=== PATIENT | female | born 2000 | race Caucasian/White ===

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

== ENCOUNTER 2022-01-27 16:13 | Observation (INO) ==
[2022-01-27 17:35] LABS: ABS Basophils 0.1 10^3/ul (0-0.2); ABS Eosinophils 0.2 10^3/ul (0-0.6); ABS Lymphocytes 2.1 10^3/ul (1.0-4.8); ABS Monocytes 1.2 10^3/ul (0-0.8); ABS Neutrophils 17.5 10^3/ul (1.5-7.7); Eosinophil % 0.8 %; Hematocrit 41 % (35-47); Hemoglobin 13.7 g/dL (12.0-16.0); Lymphocyte % 10.2 %; Mean Corpuscular HGB Conc 34 g/dL (31-36); Mean Corpuscular Hemoglobin 27 pg (27-31); Mean Corpuscular Volume 79 fL (80-97); Mean Platelet Volume 8.6 fL (7.4-10.4); Platelet Count 420 10^3/uL (150-450); Red Blood Count 5.17 10^6 /uL (3.70-4.87); Red Cell Distribution Width 16 % (10-15); White Blood Count 21.1 10^3/uL (3.5-10.8)
[2022-01-27 17:51] LABS: Urine Appearance Clear; Urine Bilirubin Negative (Negative); Urine Blood Negative (Negative); Urine Color Yellow; Urine Glucose Negative (Negative); Urine Ketones Negative (Negative); Urine Nitrite Negative (Negative); Urine Protein Negative (Negative); Urine Urobilinogen 1.0 (Negative) (Negative); Urine pH 5.5 (5.0-9.0)
[2022-01-27 18:25] LABS: HCG Pregnancy < 0.60 mIU/mL
[2022-01-27 18:26] LABS: ALT 63 U/L (7-52); AST 87 U/L (13-39); Albumin 4.2 g/dL (3.2-5.2); Albumin/Globulin Ratio 1.4 (1-3); Alkaline Phosphatase 123 U/L (35-149); Blood Urea Nitrogen 10 mg/dL (6-24); C Reactive Protein 3.25 mg/L (<8.01); CO2 Carbon Dioxide 28 mmol/L (22-32); Calcium 9.5 mg/dL (8.6-10.3); Chloride 104 mmol/L (101-111); Globulin 2.9 g/dL (2-4); Glucose 96 mg/dL (70-100); Lipase 27 U/L (11.0-82.0); Sodium 138 mmol/L (135-145); Total Protein 7.1 g/dL (6.4-8.9); eGFR CKD-EPI 137.8 (>60)
[2022-01-27 18:29] LABS: Anion Gap 6 mmol/L (2-11); Potassium 5.1 mmol/L (3.5-5.0)
[2022-01-27] MEDS ORDERED: Lactated Ringers 1000 ml BAG 1,000 ML IV ONE (18:44)
[2022-01-27] MEDS ORDERED: Morphine 4 MG/ML VIAL (1 ml) IV ONE (18:44)
[2022-01-27] MEDS ORDERED: Ondansetron 4 mg VIAL 2 MG/ML 2 ml VIAL IV ONE (18:45)
[2022-01-27] MEDS ORDERED: Ondansetron 4 mg VIAL 2 MG/ML 2 ml VIAL IV PRN (19:49)
[2022-01-27] MEDS ORDERED: Ciprofloxacin 400mg IVPREMIX 400 MG/200 ML BAG IVPB ONE (19:53)
[2022-01-27] MEDS ORDERED: Iohexol 350 (CONTRAST) 500 ML MDV IV ONE (20:17)
[2022-01-27] MEDS ORDERED: metroNIDAZOLE IV 500 MG/100ML 500 MG/100 ML BAG IVPB SCH (22:00)
[2022-01-28] MEDS: metroNIDAZOLE IV 500 MG/100ML 500 MG/100 ML BAG IVPB SCH ×3 (00:38→18:31)
[2022-01-28] MEDS: D5W 1/2 NS KCl 20 meq 1000 ml 1,000 ML IV SCH ×2 (00:38→10:42)
[2022-01-28] MEDS: HYDROmorphone 0.5 MG/0.5 ML SYRINGE IV SLOW PU PRN ×4 (00:39→23:06)
[2022-01-28 03:34] LABS: ABS Basophils 0.1 10^3/ul (0-0.2); ABS Eosinophils 0.2 10^3/ul (0-0.6); ABS Lymphocytes 2.8 10^3/ul (1.0-4.8); ABS Monocytes 0.7 10^3/ul (0-0.8); ABS Neutrophils 6.8 10^3/ul (1.5-7.7); Hematocrit 39 % (35-47); Hemoglobin 12.6 g/dL (12.0-16.0); Lymphocyte % 26.3 %; Mean Corpuscular HGB Conc 32 g/dL (31-36); Mean Corpuscular Hemoglobin 26 pg (27-31); Mean Corpuscular Volume 79 fL (80-97); Mean Platelet Volume 8.6 fL (7.4-10.4); Nucleated Red Blood Cells % 0.1; Platelet Count 397 10^3/uL (150-450); Red Blood Count 4.91 10^6 /uL (3.70-4.87); Red Cell Distribution Width 16 % (10-15); White Blood Count 10.6 10^3/uL (3.5-10.8)
[2022-01-28 03:54] LABS: Albumin 3.9 g/dL (3.2-5.2); Albumin/Globulin Ratio 1.6 (1-3); Calcium 9.4 mg/dL (8.6-10.3); Globulin 2.4 g/dL (2-4); Potassium 4.1 mmol/L (3.5-5.0); Total Bilirubin 0.5 mg/dL (0.2-1.0); Total Protein 6.3 g/dL (6.4-8.9); eGFR CKD-EPI 135.3 (>60)
[2022-01-28] MEDS ORDERED: oxyCODONE/Acetamin 5/325 mg TAB PO PRN (10:44)
[2022-01-28] MEDS ORDERED: Ondansetron 4 mg VIAL 2 MG/ML 2 ml VIAL IV PRN (10:44)
[2022-01-28] MEDS ORDERED: Naloxone 0.4 mg VIAL 0.4 mg/ml 1 ml VIAL IV PRN (10:44)
[2022-01-28] MEDS ORDERED: ceFAZolin 2 GM in NS PREMIX 2 GM/100 ML BAG IVPB ONE (14:15)
[2022-01-28] MEDS ORDERED: Rocuronium 50 mg VIAL 10 mg/ml 5 ml VIAL (50 mg) ONE (14:36)
[2022-01-28] MEDS ORDERED: Lidocaine 2% PF 5 ML VIAL ONE (14:37)
[2022-01-28] MEDS ORDERED: Midazolam 2 mg/2 ml VIAL 1 mg/ml 2 ml VIAL (2 mg) ONE (14:38)
[2022-01-28] MEDS ORDERED: fentaNYL 250 mcg/5 ml 50 MCG/ML 5 ml VIAL (250 MCG) ONE (14:39)
[2022-01-28] MEDS ORDERED: Propofol 10 MG/ML 20 ML BTL ONE (14:39)
[2022-01-28] MEDS ORDERED: Bupivacaine 0.25% EPI 200,000 30 ML SDV ONE (14:50)
[2022-01-28] MEDS ORDERED: Dexamethasone IV 4 MG/ML VIAL 1 ml VIAL ONE (14:50)
[2022-01-28] MEDS ORDERED: Ondansetron 4 mg VIAL 2 MG/ML 2 ml VIAL ONE (14:50)
[2022-01-28] MEDS ORDERED: fentaNYL 100 mcg/2 ml 50 MCG/ML VIAL ONE (16:59)
[2022-01-28] MEDS ORDERED: oxyCODONE/Acetamin 5/325 mg TAB ONE (16:59)
[2022-01-28] MEDS: fentaNYL 100 mcg/2 ml 50 MCG/ML VIAL IV PRN ×2 (17:00→17:06)
[2022-01-29] MEDS: HYDROmorphone 0.5 MG/0.5 ML SYRINGE IV SLOW PU PRN ×3 (01:11→08:01)
[2022-01-29] MEDS: metroNIDAZOLE IV 500 MG/100ML 500 MG/100 ML BAG IVPB SCH ×2 (01:13→08:04)
[2022-01-29] MEDS: D5W 1/2 NS KCl 20 meq 1000 ml 1,000 ML IV SCH (03:05)
[2022-01-29 10:53] VITALS: BP 118/53
== END 2022-01-29 11:00 | disposition home or self-care (01) ==
LOC: ED 16:13 → EDHOLD 16:13 → MED 23:05
PROVIDERS: ADMIT Surgery; ATTEND Surgery

== ENCOUNTER 2023-02-06 22:23 | Observation (INO) ==
[2023-02-06 23:04] LABS: ABS Basophils 0.2 10^3/uL (0.0-0.1); ABS Eosinophils 1.2 10^3/uL (0.0-0.5); ABS Lymphocytes 3.7 10^3/uL (1.0-4.8); ABS Monocytes 1.1 10^3/uL (0.0-0.9); ABS Neutrophils 10.3 10^3/uL (1.5-7.6); Eosinophil % 7.1 %; Hematocrit 39.5 % (35-45); Hemoglobin 13.4 g/dL (11.5-14.3); Lymphocyte % 22.7 %; Mean Corpuscular Hemoglobin 27.6 pg (27-33); Mean Corpuscular Volume 81.3 fL (80-97); Mean Platelet Volume 7.7 fL (7.5-11.2); Platelet Count 475 10^3/uL (150-450); Red Blood Count 4.86 10^6/uL (3.63-4.92); Red Cell Distribution Width 13.4 % (12-17); White Blood Count 16.5 10^3/uL (3.8-11.8)
[2023-02-06 23:19] LABS: Albumin 4.1 g/dL (3.2-5.2); Anion Gap 9 mmol/L (2-16); Blood Urea Nitrogen 14 mg/dL (6-24); CO2 Carbon Dioxide 25 mmol/L (22-32); Calcium 8.8 mg/dL (8.6-10.3); Chloride 100 mmol/L (101-111); Creatinine, Serum 0.63 mg/dL (0.51-0.95); Glucose 75 mg/dL (70-100); Potassium 3.7 mmol/L (3.5-5.0); Sodium 134 mmol/L (135-145); Total Protein 7.4 g/dL (6.4-8.9); eGFR CKD-EPI 130.2 (>60)
[2023-02-06 23:20] LABS: ALT 23 U/L (7-52); AST 18 U/L (13-39); Albumin/Globulin Ratio 1.2 (1-3); Alkaline Phosphatase 90 U/L (35-149); C Reactive Protein 5.74 mg/L (<8.01); Globulin 3.3 g/dL (2-4); Lipase 255 U/L (11.0-82.0)
[2023-02-06 23:22] LABS: Urine Appearance Clear; Urine Bilirubin Negative (Negative); Urine Blood 3+ (Negative); Urine Color Straw; Urine Glucose Negative (Negative); Urine Ketones Negative (Negative); Urine Nitrite Negative (Negative); Urine Protein Negative (Negative); Urine Specific Gravity 1.002 (1.002-1.030); Urine Urobilinogen Negative (Negative)
[2023-02-06 23:26] LABS: Urine Amorphous Crystals Present (Absent); Urine Bacteria 1+ (Absent); Urine Red Blood Cell Trace(0-2/hpf) (Absent); Urine Squamous Epithelial Cell Present (Absent); Urine White Blood Cell Trace(0-5/hpf) (Absent)
[2023-02-07] MEDS ORDERED: Iohexol 300 (CONTRAST) 10 ML SDV IV ONE (01:54)
[2023-02-07 02:19] LABS: HCG Pregnancy < 0.60 mIU/mL
[2023-02-07] MEDS ORDERED: Orphenadrine Citrate INJ 30 mg/ml 2 ml VIAL (60 mg) IV ONE (03:49)
[2023-02-07] MEDS ORDERED: Famotidine IV 10 MG/ML 2 ml VIAL (20 mg) IV SLOW PU ONE (03:50)
[2023-02-07] MEDS ORDERED: Ondansetron 4 mg VIAL 2 MG/ML 2 ml VIAL IV ONE (03:50)
[2023-02-07] MEDS ORDERED: HYDROcodone/ACETAMIN 5/325 mg TAB PO ONE (05:16)
[2023-02-07] MEDS ORDERED: NS 0.9% 1000 ml BAG 1,000 ML IV ONE (07:46)
[2023-02-07 08:34] LABS: ABS Basophils 0.1 10^3/uL (0.0-0.1); ABS Eosinophils 0.9 10^3/uL (0.0-0.5); ABS Lymphocytes 2.8 10^3/uL (1.0-4.8); ABS Monocytes 0.8 10^3/uL (0.0-0.9); ABS Neutrophils 8.3 10^3/uL (1.5-7.6); ABS Nucleated RBC 0.01 10^3/ul; Eosinophil % 6.8 %; Hematocrit 40.2 % (35-45); Hemoglobin 13.6 g/dL (11.5-14.3); Lymphocyte % 21.6 %; Mean Corpuscular Hemoglobin 27.6 pg (27-33); Mean Corpuscular Hgb Conc 33.8 g/dL (31-36); Mean Corpuscular Volume 81.7 fL (80-97); Mean Platelet Volume 7.7 fL (7.5-11.2); Nucleated Red Blood Cells % 0.1 /100 WBC (0.0-0.4); Platelet Count 464 10^3/uL (150-450); Red Blood Count 4.92 10^6/uL (3.63-4.92); Red Cell Distribution Width 13.4 % (12-17); White Blood Count 12.7 10^3/uL (3.8-11.8)
[2023-02-07 08:54] LABS: Albumin 4.1 g/dL (3.2-5.2); Albumin/Globulin Ratio 1.3 (1-3); C Reactive Protein 4.68 mg/L (<8.01); Creatinine, Serum 0.61 mg/dL (0.51-0.95); Globulin 3.1 g/dL (2-4); Potassium 3.8 mmol/L (3.5-5.0); Total Bilirubin 0.4 mg/dL (0.2-1.0); Total Protein 7.2 g/dL (6.4-8.9); eGFR CKD-EPI 131.2 (>60)
[2023-02-07] MEDS ORDERED: HYDROmorphone 1 MG/1 ML SYRINGE IV SLOW PU PRN (09:20)
[2023-02-07] MEDS ORDERED: Ondansetron 4 mg VIAL 2 MG/ML 2 ml VIAL IV PRN (09:20)
[2023-02-07] MEDS: Pantoprazole VIAL 40 MG VIAL IV SCH (09:43)
[2023-02-07] MEDS: Lactated Ringers 1000 ml BAG 1,000 ML IV SCH ×2 (09:44→16:52)
[2023-02-08] MEDS: Lactated Ringers 1000 ml BAG 1,000 ML IV SCH (02:08)
[2023-02-08 08:19] LABS: ABS Basophils 0.1 10^3/uL (0.0-0.1); ABS Eosinophils 0.8 10^3/uL (0.0-0.5); ABS Lymphocytes 2.5 10^3/uL (1.0-4.8); ABS Monocytes 0.7 10^3/uL (0.0-0.9); ABS Neutrophils 6.7 10^3/uL (1.5-7.6); Eosinophil % 7.3 %; Hematocrit 38.2 % (35-45); Hemoglobin 12.9 g/dL (11.5-14.3); Lymphocyte % 23.2 %; Mean Corpuscular Hemoglobin 27.6 pg (27-33); Mean Corpuscular Hgb Conc 33.8 g/dL (31-36); Mean Corpuscular Volume 81.6 fL (80-97); Mean Platelet Volume 8.1 fL (7.5-11.2); Platelet Count 410 10^3/uL (150-450); Red Blood Count 4.69 10^6/uL (3.63-4.92); White Blood Count 10.7 10^3/uL (3.8-11.8)
[2023-02-08 08:32] LABS: Albumin 3.8 g/dL (3.2-5.2); Albumin/Globulin Ratio 1.3 (1-3); Creatinine, Serum 0.53 mg/dL (0.51-0.95); Globulin 2.9 g/dL (2-4); Total Bilirubin 0.5 mg/dL (0.2-1.0); Total Protein 6.7 g/dL (6.4-8.9); eGFR CKD-EPI 135.7 (>60)
[2023-02-08] MEDS: Pantoprazole VIAL 40 MG VIAL IV SCH (08:59)
[2023-02-08 10:13] VITALS: BP 129/79
== END 2023-02-08 13:20 | disposition home or self-care (01) ==
LOC: EDHOLD 22:23 → ED 22:23 → SSU 02-07 14:53
PROVIDERS: ADMIT Surgery; ATTEND Surgery